=== PATIENT | male | born 1980 | race African-American/Black ===

== ENCOUNTER 2018-04-12 12:32 | Observation (INO) | payer MEDICAID ==
[~2018-04-12] VITALS: Ht 170.2 cm; Wt 65.8 kg
[2018-04-12 13:26] LABS: BASOPHILS % 0.6 % (0.0-2.0); EOSINOPHILS % 0.5 % (0.0-5.0); HEMATOCRIT. 39.9 % (42.0-52.0); HEMOGLOBIN. 13.6 g/dL (14.0-18.0); LYMPHOCYTES % 39.9 % (20.0-50.0); MEAN CORPUSCULAR HEMOGLOBIN 30.8 pg (28.0-32.0); MEAN CORPUSCULAR VOLUME 90.1 fL (80.0-94.0); MONOCYTES % 10.2 % (2.0-8.0); NEUTROPHILS % 48.8 % (40.0-76.0); PLATELET 199 x1000/uL (130-400); RED BLOOD CELL COUNT 4.43 mill/uL (4.7-6.1); RED CELL DISTRIBUTION WIDTH 13.1 % (11.6-14.6)
[2018-04-12 13:29] LABS: CHLORIDE 105 mEq/L (98-107)
[2018-04-12 13:31] LABS: INR 1.1; PARTIAL THROMBOPLASTIN TIME 25.8 sec (23.4-31.0)
[2018-04-12] MEDS ORDERED: ACETAMINOPHEN 650MG SUPP PR PRN (14:00)
[2018-04-12] MEDS ORDERED: ONDANSETRON HCL 4MG/2ML VIAL IV PRN (14:00)
[2018-04-12] MEDS ORDERED: DOCUSATE SODIUM 100MG CAPSULE PO PRN (14:00)
[2018-04-12] MEDS ORDERED: HYDROCODONE/ACETAMINOPHEN 10/325MG TABLET PO PRN (14:00)
[2018-04-12] MEDS ORDERED: NA PHOS,M-B/NA PHOS,DI-BA ENEMA 118ML PR PRN (14:00)
[2018-04-12] MEDS ORDERED: HYDROCODONE/ACETAMINOPHEN 5/325MG TABLET PO PRN (14:00)
[2018-04-12] MEDS ORDERED: ACETAMINOPHEN 650MG/20.3ML UDC GT PRN (14:00)
[2018-04-12] MEDS ORDERED: CLONIDINE 0.1MG TABLET PO PRN ×2 (14:00→15:30)
[2018-04-12] MEDS ORDERED: ACETAMINOPHEN 325MG TABLET PO PRN (14:00)
[2018-04-12] MEDS ORDERED: LORAZEPAM 0.5MG TABLET PO PRN (14:00)
[2018-04-12] MEDS ORDERED: MAGNESIUM/ALUMINUM HYDROXIDE/SIMETHICONE 30ML UDC PO PRN (14:00)
[2018-04-12 21:51] LABS: CREATINE KINASE MB FRACTION 0.9 ng/mL (0.5-3.6)
[2018-04-12 22:16] VITALS: BP 105/59
[2018-04-13] VITALS (7 sets, daily range): BP systolic 104–122; BP diastolic 59–79
[2018-04-13 00:06] LABS: CREATINE KINASE MB FRACTION 0.9 ng/mL (0.5-3.6)
[2018-04-13] MEDS: IPRATROPIUM/ALBUTEROL 0.5-3(2.5)MG/3ML NEB INH SCH ×4 (01:37→20:51)
[2018-04-13 01:42] LABS: CLARITY URINE CLEAR (CLEAR); COLOR URINE YELLOW (YELLOW); KETONES URINE TRACE (NEGATIVE); LEUKOCYTE ESTERASE URINE NEGATIVE (NEGATIVE); NITRITE URINE NEGATIVE (NEGATIVE); OCCULT BLOOD URINE NEGATIVE (NEGATIVE); PH URINE 6.5 (4.5-8.0); PROTEIN URINE 1+ (NEGATIVE); SPECIFIC GRAVITY URINE 1.025 (1.005-1.030)
[2018-04-13 01:52] LABS: *AMPHETAMINES SCREEN URINE NEGATIVE (NEGATIVE); *BARBITURATES SCREEN URINE NEGATIVE (NEGATIVE); CANNABINOID URINE SCREEN PRESUMTIVE POSITIVE (NEGATIVE); OPIATES URINE SCREEN NEGATIVE (NEGATIVE); PHENCYCLIDINE URINE SCREEN NEGATIVE (NEGATIVE)
[2018-04-13 01:53] LABS: *BENZODIAZEPINES SCREEN URINE NEGATIVE (NEGATIVE); *COCAINE SCREEN URINE NEGATIVE (NEGATIVE); METHADONE URINE SCREEN NEGATIVE (NEGATIVE)
[2018-04-13 07:48] LABS: BASOPHILS % 0.7 % (0.0-2.0); EOSINOPHILS % 1.2 % (0.0-5.0); HEMATOCRIT. 40.6 % (42.0-52.0); HEMOGLOBIN. 13.8 g/dL (14.0-18.0); LYMPHOCYTES % 55.3 % (20.0-50.0); MEAN CORPUSCULAR VOLUME 90.9 fL (80.0-94.0); MEAN PLATELET VOLUME 8.8 fl (7.4-10.4); MONOCYTES % 13.6 % (2.0-8.0); NEUTROPHILS % 29.2 % (40.0-76.0); PLATELET 183 x1000/uL (130-400); RED BLOOD CELL COUNT 4.47 mill/uL (4.7-6.1); RED CELL DISTRIBUTION WIDTH 13.1 % (11.6-14.6)
[2018-04-13 08:16] LABS: CHLORIDE 106 mEq/L (98-107)
[2018-04-13 08:38] LABS: HDL CHOLESTEROL 57 mg/dL (40-59)
[2018-04-13 08:44] LABS: LDL CHOLESTEROL 72 mg/dL (5-100)
[2018-04-13 08:47] LABS: T4 FREE 0.95 ng/dL (0.76-1.46)
[2018-04-14] VITALS: BP 106/63
[2018-04-14] MEDS: IPRATROPIUM/ALBUTEROL 0.5-3(2.5)MG/3ML NEB INH SCH ×2 (01:59→11:12)
[2018-04-14 04:00] VITALS: BP 105/58
[2018-04-14 08:07] VITALS: BP_SYST 109; BP_SYST 121; BP_SYST 125; BP_DIAS 62; BP_DIAS 74; BP_DIAS 77
[2018-04-14 11:00] VITALS: BP 107/60
== END 2018-04-14 12:00 | disposition home or self-care (01) ==
LOC: ER 13:11 → 7WST 16:57 → INTOOBSV 16:57 → ENRESERV 17:49
PROVIDERS: ADMIT Internal Medicine; ATTEND Internal Medicine
DX: R00.1 Bradycardia, unspecified (principal); R07.89 Other chest pain; R94.31 Abnormal electrocardiogram [ECG] [EKG]; M54.5 Low back pain; F12.90 Cannabis use, unspecified, uncomplicated; S43.401A Unspecified sprain of right shoulder joint, initial encounter; X58.XXXA Exposure to other specified factors, initial encounter; Y93.89 Activity, other specified; Y92.89 Other specified places as the place of occurrence of the external cause; Y99.8 Other external cause status
CPT/HCPCS: 36415; 71045; 80053; 80061; 80305; 81003; 82550; 82553; 83690; 83735; 83880; 84439; 84443; 84481; 84484; 85025; 85610; 85730; 93005; 93306; 99285; G0378; J7620; 94640

== ENCOUNTER 2022-09-12 10:41 | Emergency (ER) | payer MEDICAID, OTHER ==
[~2022-09-12] VITALS: Ht 170.2 cm; Wt 64.0 kg
[2022-09-12 10:59] VITALS: BP 129/71
[2022-09-12 12:55] LABS: CLARITY URINE CLEAR (CLEAR); COLOR URINE YELLOW (YELLOW); KETONES URINE NEGATIVE (NEGATIVE); LEUKOCYTE ESTERASE URINE NEGATIVE (NEGATIVE); NITRITE URINE NEGATIVE (NEGATIVE); OCCULT BLOOD URINE NEGATIVE (NEGATIVE); PROTEIN URINE TRACE (NEGATIVE); SPECIFIC GRAVITY URINE 1.026 (1.005-1.030)
[2022-09-14 05:09] LABS: HIV SCREEN 4G Non Reactive (Non Reactive)
[2022-09-15 04:07] LABS: NEISSERIA GONORRHOEAE NAA Negative (Negative)
== END 2022-09-12 12:20 | disposition home or self-care (01) ==
LOC: ER 10:41
DX: A64 Unspecified sexually transmitted disease (principal)
CPT/HCPCS: 81003; 87389; 87491; 87591; 99283

== ENCOUNTER 2022-10-28 12:01 | Emergency (ER) | payer OTHER ==
[~2022-10-28] VITALS: Ht 170.2 cm; Wt 69.0 kg
[2022-10-28 12:08] VITALS: BP 121/81
[2022-10-28] MEDS ORDERED: P20 MT (13:34)
[2022-10-28] MEDS ORDERED: IBUP-2029 MT (13:34)
[2022-10-28] MEDS ORDERED: IBUPROFEN 600MG TABLET PO ONE (13:45)
[2022-10-28] MEDS ORDERED: PREDNISONE 20MG TABLET PO ONE (13:45)
== END 2022-10-28 13:58 | disposition home or self-care (01) ==
LOC: ER 12:01
DX: M26.602 Left temporomandibular joint disorder, unspecified (principal); Z13.9 Encounter for screening, unspecified
CPT/HCPCS: 99283

== ENCOUNTER 2023-02-15 18:38 | Emergency (ER) | payer OTHER ==
[~2023-02-15] VITALS: Ht 170.2 cm; Wt 71.0 kg
[~2023-02-15 18:38] MED LIST: IBUP-2029 MT; P20 MT
[2023-02-15 18:44] VITALS: BP 108/67
[2023-02-15] MEDS ORDERED: LIDOCAINE HCL 1% 20ML VIAL (Pyxis) INJ INFIL ONE (19:15)
[2023-02-15] MEDS ORDERED: AMOX1TAB16 MT (19:42)
== END 2023-02-15 20:08 | disposition home or self-care (01) ==
LOC: ER 18:55
DX: L03.011 Cellulitis of right finger (principal)
CPT/HCPCS: 99281; Z7610